=== PATIENT | female | born 1980 | race Caucasian/White ===

== ENCOUNTER 2020-06-15 16:46 | Outpatient (CLI) | payer OTHER ==
[2020-06-15] MEDS ORDERED: GADOBUTROL 10 MMOL/10 ML VIAL ONE (17:19)
== END 2020-06-15 16:47 | disposition home or self-care (01) ==
LOC: DI 16:46 → EDBD 16:46 → DI 16:47
PROVIDERS: ATTEND Orthopaedic Surgery
DX: Z53.9 Procedure and treatment not carried out, unspecified reason (principal)